=== PATIENT | female | born 1970 | race Caucasian/White ===

== ENCOUNTER 2016-07-13 13:35 | Emergency (ER) | payer SELFPAY ==
[2016-07-13 14:05] VITALS: BP 143/85; PULSE 76; BMI 30.1
== END 2016-07-13 16:00 | disposition left against medical advice (07) ==
LOC: JER 13:35
DX: Z53.21 Procedure and treatment not carried out due to patient leaving prior to being seen by health care provider (principal)
CPT/HCPCS: 99281-25